=== PATIENT | male | born 1945 | race Caucasian/White ===

== ENCOUNTER 2020-10-09 07:11 | Inpatient (IN) | payer MEDICARE, BC ==
[~2020-10-09] VITALS: Ht 167.6 cm; Wt 48.2 kg
[2020-10-09] VITALS (12 sets, daily range): BP systolic 96–127; BP diastolic 48–89; PULSE 64–91; TEMP 97.6–98.5
[2020-10-09 07:45] LABS: BASO # 0.1 (0.0-0.2); BASO % 0.8 % (0.0-2.0); EOS # 0.2 (0.0-0.7); EOS % 2.5 % (0-4.0); GRAN # 4.5 (1.4-6.5); GRAN % 61.9 % (42.2-75.2); HEMATOCRIT 49.6 % (42.0-52.0); HEMOGLOBIN 16.1 g/dl (13.5-18.0); LYMPH # 1.8 (1.2-3.4); LYMPH % 24.1 % (20.0-51.0); MEAN CELL VOLUME 95 fl (80.0-100.0); MEAN CORPUSCULAR HEMOGLOBIN 31 pg (27.0-31.0); MEAN CORPUSCULAR HGB CONC 33 g/dl (33.0-37.0); MEAN PLATELET VOLUME 9.5 fl (7.4-10.4); MONO # 0.8 (0.1-0.6); MONO % 10.6 % (1.7-9.3); PLATELET COUNT 309 K/mm3 (130-400); RED BLOOD COUNT 5.23 M/mm3 (4.20-5.60); REDCELL DISTRIBUTION WIDTH-CV 12.5 % (11.5-14.5)
[2020-10-09] MEDS ORDERED: ASPIRIN 32325 MG/TAB PO (07:45)
[2020-10-09] MEDS ORDERED: PLAVIX 75MG TAB75 MG PO (07:46)
[2020-10-09] MEDS ORDERED: NITROSTAT0.4 MG/TAB SL (07:46)
[2020-10-09 07:55] LABS: PROTHROMBIN TIME 10.9 SECONDS (9.7-12.8)
[2020-10-09 08:01] LABS: ALBUMIN 3.9 gm/dL (3.5-5.0); BILIRUBIN,TOTAL 0.4 mg/dL (0.0-1.0); CALCIUM 9.2 mg/dL (8.4-10.2); CREATININE, serum 1.04 (0.66-1.25); POTASSIUM 4.7 mmol/L (3.4-5.0); TOTAL PROTEIN 7.3 gm/dL (6.4-8.2)
[2020-10-09 08:41] LABS: TROPONIN-I 0.244 ng/mL (0.000-0.035)
--- NOTE | 2020-10-09 12:35 | NUR ---
SEE MERGE DOCUMENTATION FOR MEDICATION ADMINISTRATION TIMES AND INTRA/POST PROCEDURE SEDATION ASSESSMENTS.
--- NOTE | 2020-10-09 13:50 | NUR ---
PATIENT ADMITED INTO ROOM 327 POST HEART CATH WITH LAD BALLOONING & FAILED STENT PLACEMENT. PATIENT NEEDS BYPASS, PER CARDS, BUT PATIENT IS REFUSING. PATIENT & SON EDUCATED AND DISCUSSED OPTIONS WITH PERSONAL COMPUTER SPECIALIST. PATIENT IS A&O. LABBORED BREATHING AT REST AND IS A KNOWN SMOKER. NOTED WHEEZING & COURSE LUNG BETANCUR. PATIENT HAS A VERY THIN BODY STATURE. VSS WITH TELE INPLACE. RIGHT WRIST TR BAND HAS 14CC OF AIR. IV FLUIDS INFUSING INTO RIGHT AC IV. HEAD TO TOE ASSESSMENT COMPLETE. ORIENTED TO ROOM. CALL LIGHT IN REACH.
--- NOTE | 2020-10-09 15:50 | NUR ---
RELEASED 2ML OF AIR FROM TR BAND. NO BLEEDING. AT BEDSIDE VISITING WITH PATIENT & SON
--- NOTE | 2020-10-09 18:00 | NUR ---
PATIENT RESTING COMFORTABLY IN BED. DENIES CHEST PAIN. SOA HAS IMPROVED, PATIENT ISN'T WORKING SO HARD TO BREATHE AT REST. VSS. TR BAND COMPLETELY DEFLATED AND NO BLEEDING AT RIGHT RADIAL SITE POST CATH. PLAN IS TO TRANSFER PATIENT TO [facility] TOMORROW.
--- NOTE | 2020-10-09 23:22 | NUR ---
PT VS DID NOT GET TAKEN. RECHECKED WITH 0000.
--- NOTE | 2020-10-09 23:32 | NUR ---
PT ALERT AND ORIENTED. PT BREATHING LABORED AND TACHYPNIC, PT STATES SOA. SPO2 RECHECKED, VALUE AT 95%. PT DENIES CHEST PAIN AT THIS TIME. PT LUNGS COARSE IN UPPER LOBES BILATERALLY, EXPIRATORY WHEEZES NOTED IN BASES BILATERALLY. PT PULSES 2+ IN ALL EXTREMITIES. PT FRAIL, RIBS VISIBLE THROUGH SKIN. PT SON AT BEDSIDE.
[2020-10-10 01:31] VITALS: BP 104/48
--- NOTE | 2020-10-10 01:31 | NUR ---
PT BP NOTED TO BE LOW, RECHECKED MANNUALLY AT THIS TIME. BP 104/48, MAP 67. PT ASYMPTOMATIC AT THIS TIME.
[2020-10-10 03:30] VITALS: BP 92/38; PULSE 75; TEMP 98.4
[2020-10-10 03:40] VITALS: BP 102/52; PULSE 69; TEMP 97.7
--- NOTE | 2020-10-10 03:45 | NUR ---
PT BLOOD PRESSURE 92/43 FROM DYNAMAP DURING 399 VS. THIS RN TAKING 399 VITAL SIGNS, IMMEDIATELY RECHECKED MANNUALLY, 102/52.
--- NOTE | 2020-10-10 05:16 | NUR ---
Pt continuing on plan of care. Pt blood pressures soft via dynamap. Rechecked mannually to confirm pressure. Pt had some shortness of breath noted during assessment, occasionally with conversation. Pt and family report SOA with conversation. Pt SpO2 remained >92% on room air. Pt denied chest pain or palpitations. Pt had cough, self-reported productive for "the last couple months" during shift. Pt reports phlegm is mucus-like in appearance. Pt denied pain during shift. Pt able to converse freely and express needs. Pt free from injury this shift.
[2020-10-10 07:32] VITALS: BP 96/53; PULSE 73; TEMP 97.6
[2020-10-10 07:36] LABS: BASO # 0.1 (0.0-0.2); BASO % 0.6 % (0.0-2.0); EOS # 0.2 (0.0-0.7); EOS % 1.6 % (0-4.0); GRAN # 6.6 (1.4-6.5); GRAN % 70.8 % (42.2-75.2); HEMATOCRIT 44.8 % (42.0-52.0); HEMOGLOBIN 14.8 g/dl (13.5-18.0); LYMPH # 1.5 (1.2-3.4); LYMPH % 16.3 % (20.0-51.0); MEAN CELL VOLUME 94 fl (80.0-100.0); MEAN CORPUSCULAR HEMOGLOBIN 31 pg (27.0-31.0); MEAN CORPUSCULAR HGB CONC 33 g/dl (33.0-37.0); MEAN PLATELET VOLUME 9.7 fl (7.4-10.4); MONO % 10.3 % (1.7-9.3); PLATELET COUNT 281 K/mm3 (130-400); RED BLOOD COUNT 4.77 M/mm3 (4.20-5.60); REDCELL DISTRIBUTION WIDTH-CV 12.4 % (11.5-14.5)
[2020-10-10 07:51] LABS: CREATININE, serum 0.97 (0.66-1.25); POTASSIUM 4.1 mmol/L (3.4-5.0)
[2020-10-10 07:52] LABS: CALCIUM 8.8 mg/dL (8.4-10.2)
--- NOTE | 2020-10-10 09:44 | NUR ---
Patient alert and oriented, answers questions appropriately. See assessment. Lungs diminished in bases, ins/ex wheezes in upper lobes. +non productive cough. Heart tones strong and irregular. No c/o chest pain or pressure. C/o RLE calf pain and cramps. RLE Homans positive. Pain to back of left calf with palpation. SCDs in place. Attempt x1 to notify Hospitalist of calf pain, will attempt again. No other c/o at this time.
--- NOTE | 2020-10-10 11:32 | NUR ---
First visit from the optical goods worker. No needs right now.
[2020-10-10] MEDS ORDERED: LIPITOR 80MG80 MG PO (11:40)
[2020-10-10] MEDS ORDERED: ASPIRIN 81M81 MG/TA2 PO (11:40)
[2020-10-10 11:43] VITALS: BP 125/48; PULSE 80; TEMP 97.5
[2020-10-10] MEDS ORDERED: RT ADVAIR 228 DISKUS IH (11:45)
--- NOTE | 2020-10-10 14:14 | NUR ---
neonatal social worker met with patient to assess needs. Patient is being transfered to [facility]. Patient states his is his DPOA-HC however he had to place herin a alf due to an Alzheimers's dx. Patient has 3 grown children. Prior to this the patient states he has not see a doctor in over 30 years, has been fully independent and uses no devices to ambulate. neonatal social worker encouraged patient to establish a PCP due to follow up care and keno terminal operator medication management. *Discharge Plan :[facility]*
[2020-10-10 14:24] VITALS: BP 125/48; PULSE 80; TEMP 97.5
--- NOTE | 2020-10-10 15:05 | NUR ---
Patient transfered to [facility] via EMS at 1500. Paperwork sent. Report called to KOKO Ugalde.
== END 2020-10-10 15:00 | disposition short-term general hospital (02) | DRG 251 ==
LOC: COL.ER 07:11 → SURG 09:31
PROVIDERS: Student in an Organized Health Care Education/Training Program; ADMIT Internal Medicine
PROC: 02703ZZ Dilation of Coronary Artery, One Artery, Percutaneous Approach (ICD-10-PCS; principal; 2020-10-09)
PROC: 4A023N7 Measurement of Cardiac Sampling and Pressure, Left Heart, Percutaneous Approach (ICD-10-PCS; 2020-10-09)
PROC: B2111ZZ Fluoroscopy of Multiple Coronary Arteries using Low Osmolar Contrast (ICD-10-PCS; 2020-10-09)
DX: I21.4 Non-ST elevation (NSTEMI) myocardial infarction (principal); I25.119 Atherosclerotic heart disease of native coronary artery with unspecified angina pectoris; F17.210 Nicotine dependence, cigarettes, uncomplicated; J44.9 Chronic obstructive pulmonary disease, unspecified; I10 Essential (primary) hypertension; Z79.82 Long term (current) use of aspirin; Z79.02 Long term (current) use of antithrombotics/antiplatelets; Z20.822 Contact with and (suspected) exposure to COVID-19; E78.5 Hyperlipidemia, unspecified; R73.03 Prediabetes; M79.661 Pain in right lower leg
CPT/HCPCS: 99223-AI; 99239; C1725; C1769; C1874; C1887; J1644; J2250; J3010; Q9967